=== PATIENT | male | born 1950 | race Two or more races ===

== ENCOUNTER 2019-03-07 13:52 | Emergency (ER) | payer MEDICAID, MEDICARE, OTHER ==
[~2019-03-07] VITALS: Ht 167.6 cm; Wt 131.1 kg
[2019-03-07] MEDS ORDERED: SODIUM CHLORIDE 0.9% 1,000ML IVBOLUS ONE (15:00)
[2019-03-07] MEDS ORDERED: SODIUM CHLORIDE FLUSH 10ML SYR IVF ONE (15:00)
[2019-03-07] MEDS ORDERED: PROPOFOL 10 MG/ML, 100ML IV ONE (15:00)
[2019-03-07] MEDS ORDERED: nabumetone (15:10)
[2019-03-07] MEDS ORDERED: ATEN25TA PO (15:10)
--- NOTE | 2019-03-07 15:13 | NUR ---
pt moved to room 30.
[2019-03-07] MEDS ORDERED: PROPOFOL 10 MG/ML, 20ML ONE (15:32)
[2019-03-07 16:17] VITALS: BP 154/85
--- NOTE | 2019-03-07 16:18 | NUR ---
successful closed reduction of left shoulder. pt tolerated well. vss remained stable throughout procedure. pt resting in room. awaiting dispo.
== END 2019-03-07 16:51 | disposition home or self-care (01) ==
LOC: ED 16:45
DX: S43.005A Unspecified dislocation of left shoulder joint, initial encounter (principal); I10 Essential (primary) hypertension; X58.XXXA Exposure to other specified factors, initial encounter; Y93.89 Activity, other specified; Y92.89 Other specified places as the place of occurrence of the external cause; Y99.8 Other external cause status
CPT/HCPCS: 23650; 73030; 99152; 99285; J2704; J7030